=== PATIENT | male | born 1980 | race African-American/Black ===

== ENCOUNTER 2021-10-18 13:05 | Emergency (ER) | payer OTHER ==
[2021-10-18] MEDS ORDERED: DOXYCYCLINE HY100 M2 PO (15:08)
[2021-10-21 07:11] LABS: CHLAMYDIA TRACHOMATIS, NAA Negative (Negative); NEISSERIA GONORRHOEAE, NAA Negative (Negative)
== END 2021-10-18 15:24 | disposition home or self-care (01) ==
LOC: ER1 13:05
PROVIDERS: Physician Assistant
DX: R30.0 Dysuria (principal); F17.200 Nicotine dependence, unspecified, uncomplicated
CPT/HCPCS: 81001; 87086; 99283; J0696

== ENCOUNTER 2022-01-07 18:58 | Emergency (ER) | payer OTHER ==
[~2022-01-07 18:58] MED LIST: DOXYCYCLINE HY100 M2 PO
[2022-01-07 20:00] LABS: HEMOGLOBIN 15.4 gm/dl (14.0-17.5); RED BLOOD COUNT 5.7 M/UL (4.20-5.50); WHITE BLOOD COUNT 4.9 K/UL (4.5-11.0)
[2022-01-07 20:18] LABS: BUN/CREATININE RATIO 15 (0-10)
== END 2022-01-07 22:46 | disposition home or self-care (01) ==
LOC: ER1 18:58
PROVIDERS: Physician Assistant
DX: R51.9 Headache, unspecified (principal); R53.83 Other fatigue; F17.210 Nicotine dependence, cigarettes, uncomplicated; Z20.822 Contact with and (suspected) exposure to COVID-19
CPT/HCPCS: 0240U; 80053; 85025; 85652; 86140; 93005; 99284